=== PATIENT | female | born 1955 | race Caucasian/White ===

== ENCOUNTER → 2024-05-28 | Outpatient (CLI) | payer MEDICARE, SELFPAY ==
[2024-05-28] MEDS: Methacholine Chloride 18 ml neb kit INHALATION (13:22)
--- NOTE | 2024-05-28 13:59 | CPS ---
Patient had 27% drop in FEV1 with dose 5. Test ended. Albuterol 2.5mg aerosol given. Patient fatigued during testing, near baseline at discharge.
== END | disposition home or self-care (01) ==
LOC: PSN 12:51
PROVIDERS: PCP Student in an Organized Health Care Education/Training Program
DX: R06.02 Shortness of breath (principal); R05.3 Chronic cough
CPT/HCPCS: 94070; 95070